=== PATIENT | male | born 2000 | race African-American/Black ===

== ENCOUNTER 2020-11-08 18:46 | Emergency (ER) | payer SELFPAY ==
[~2020-11-08] VITALS: Ht 167.6 cm; Wt 83.0 kg
[2020-11-08] MEDS ORDERED: ALPRAZOLAM0.5 M1 PO (20:29)
== END 2020-11-08 20:50 | disposition home or self-care (01) ==
LOC: FSED 19:48
DX: F41.9 Anxiety disorder, unspecified (principal); F17.210 Nicotine dependence, cigarettes, uncomplicated
CPT/HCPCS: 80053; 85025; 99283

== ENCOUNTER 2020-12-29 22:56 | Emergency (ER) | payer SELFPAY ==
[~2020-12-29] VITALS: Ht 167.6 cm; Wt 83.0 kg
[~2020-12-29 22:56] MED LIST: ALPRAZOLAM0.5 M1 PO
[2020-12-29] MEDS ORDERED: IBUPROFEN800 MG PO (23:43)
[2020-12-29] MEDS ORDERED: MEDROL4 MG PO (23:44)
== END 2020-12-29 23:53 | disposition home or self-care (01) ==
LOC: EDSEX 22:56 → FSED 23:23
DX: M54.5 Low back pain (principal); M54.16 Radiculopathy, lumbar region; F17.210 Nicotine dependence, cigarettes, uncomplicated
CPT/HCPCS: 99282